=== PATIENT | female | born 1965 | race Two or more races ===

== ENCOUNTER 2024-07-22 15:18 | Inpatient (IN) | payer MEDICAID ==
[~2024-07-22] VITALS: Ht 160 cm; Wt 65.8 kg
[2024-07-22] MEDS ORDERED: ONDANSETRON HCL/PF 4 MG/2 ML VIAL ONE (16:16)
[2024-07-22] MEDS ORDERED: MORPHINE SULFATE INJ 4 MG/ML DISP.SYRIN ONE (16:16)
[2024-07-22] MEDS: ONDANSETRON HCL/PF 4 MG/2 ML VIAL IVP ONE (16:24)
[2024-07-22] MEDS: MORPHINE SULFATE INJ 2 MG/ML DISP.SYRIN IV ONE (16:25)
[2024-07-22] MEDS: IV NS 0.9% 500 ML BAG IV ONE (16:26)
[2024-07-22 17:05] LABS: BASOPHILS % (AUTO) 0.2 % (0.0-2.0); HEMATOCRIT 35 % (33-45); HEMOGLOBIN 11.7 g/dL (11.5-14.8); LYMPHOCYTES # (AUTO) 1.3 K/uL (0.8-4.8); LYMPHOCYTES % (AUTO) 8.3 % (20.0-44.0); MEAN CORPUSCULAR HEMOGLOBIN 28 PG (26.0-33.0); MEAN CORPUSCULAR HGB CONC 33 g/dl (31.0-36.0); MEAN CORPUSCULAR VOLUME 85 fL (82-100); MONOCYTES # (AUTO) 0.8 K/uL (0.1-1.30); MONOCYTES % (AUTO) 5.1 % (2.0-12.0); NEUTROPHILS # (AUTO) 13.2 K/uL (1.8-8.9); NEUTROPHILS % (AUTO) 86.4 % (43.0-81.0); PLATELET COUNT (AUTO) 256 K/uL (150-450); RED BLOOD CELL COUNT(AUTO) 4.18 MIL/uL (4.0-5.2); RED CELL DISTRIBUTION WIDTH 14.4 % (11.5-15.0); WHITE BLOOD COUNT (AUTO) 15.3 K/uL (4.3-11.0)
[2024-07-22] MEDS ORDERED: GLIM4TAB37 PO (17:23)
[2024-07-22] MEDS ORDERED: CALC-1239 PO (17:23)
[2024-07-22] MEDS ORDERED: METF1000 PO (17:23)
[2024-07-22] MEDS ORDERED: ASPI-1420 PO (17:23)
[2024-07-22] MEDS ORDERED: SERT50TA12 PO (17:23)
[2024-07-22] MEDS ORDERED: SITA100T PO (17:23)
[2024-07-22] MEDS ORDERED: DOCU100C58 PO (17:23)
[2024-07-22 17:27] LABS: CREATININE 0.7 mg/dL (0.6-1.3); POTASSIUM 4.3 mmol/L (3.5-5.1)
[2024-07-22] MEDS ORDERED: hydrALAZINE HCL IV 20 MG VIAL IV PRN (19:00)
[2024-07-22] MEDS ORDERED: ONDANSETRON HCL/PF 4 MG/2 ML VIAL IVP PRN (19:00)
[2024-07-22] MEDS ORDERED: DEXTROSE 50%-WATER 50 ML DISP.SYRIN IV PRN (19:00)
[2024-07-22 20:30] VITALS: BP 159/76; TEMP 99; O2SAT 99
[2024-07-22 21:49] LABS: INR 0.99 (0.91-1.10); PROTHROMBIN TIME 10.5 SECS (9.2-11.1)
[2024-07-22] MEDS: IV NS 0.9% 1,000 ML IV SCH (21:55)
[2024-07-22] MEDS: BLOOD SUGAR DIAGNOSTIC 1 EACH STRIP VI SCH (22:20)
[2024-07-22] MEDS: *INSULIN REGULAR(HUMULIN R)HUM 100 UNIT/ML VIAL SQ PRN (22:26)
[2024-07-22 23:05] VITALS: BP 144/71; O2SAT 98
[2024-07-22] MEDS: MORPHINE SULFATE INJ 2 MG/ML DISP.SYRIN IV PRN (23:05)
[2024-07-23] VITALS: BP 144/71; TEMP 98.9; O2SAT 98
[2024-07-23 02:28] LABS: PREGNANCY TEST URINE QUAL NEGATIVE (NEGATIVE)
[2024-07-23 04:00] VITALS: BP 144/79; TEMP 97.8; O2SAT 97
[2024-07-23] MEDS ORDERED: FERR325T6 PO (05:39)
[2024-07-23 07:10] LABS: BASOPHILS % (AUTO) 0.2 % (0.0-2.0); EOSINOPHILS % (AUTO) 0.1 % (0.0-6.0); HEMATOCRIT 31 % (33-45); HEMOGLOBIN 10.3 g/dL (11.5-14.8); LYMPHOCYTES # (AUTO) 1.2 K/uL (0.8-4.8); LYMPHOCYTES % (AUTO) 11.8 % (20.0-44.0); MEAN CORPUSCULAR HEMOGLOBIN 28 PG (26.0-33.0); MEAN CORPUSCULAR HGB CONC 34 g/dl (31.0-36.0); MEAN CORPUSCULAR VOLUME 83 fL (82-100); MONOCYTES # (AUTO) 0.9 K/uL (0.1-1.30); MONOCYTES % (AUTO) 9.5 % (2.0-12.0); NEUTROPHILS # (AUTO) 7.8 K/uL (1.8-8.9); NEUTROPHILS % (AUTO) 78.4 % (43.0-81.0); PLATELET COUNT (AUTO) 227 K/uL (150-450); RED BLOOD CELL COUNT(AUTO) 3.72 MIL/uL (4.0-5.2); RED CELL DISTRIBUTION WIDTH 14.4 % (11.5-15.0); WHITE BLOOD COUNT (AUTO) 9.9 K/uL (4.3-11.0)
[2024-07-23 07:13] LABS: INR 1.04 (0.91-1.10)
[2024-07-23 07:53] LABS: BILIRUBIN,TOTAL 0.3 mg/dL (0.2-1.0); CALCIUM, SERUM 7.9 mg/dL (8.5-10.1); CREATININE 0.5 mg/dL (0.6-1.3); MAGNESIUM 1.5 mg/dL (1.8-2.4); PHOSPHORUS 2.7 mg/dL (2.5-4.9); POTASSIUM 3.6 mmol/L (3.5-5.1)
[2024-07-23 08:00] VITALS: BP 149/67; TEMP 100; O2SAT 98
[2024-07-23] MEDS: SERTRALINE HCL 50 MG TABLET PO SCH (08:37)
[2024-07-23] MEDS: DOCUSATE SODIUM 100 MG CAPSULE PO SCH (08:37)
[2024-07-23] MEDS: MORPHINE SULFATE INJ 2 MG/ML DISP.SYRIN IV ONE (10:49)
[2024-07-23] MEDS ORDERED: BUPIVACAINE 0.25% 75 MG/30 ML VIAL ONE (11:06)
[2024-07-23] MEDS ORDERED: ANESTHESIA TRAY IN PYXIS 1 EA TRAY MC ONE (11:06)
[2024-07-23] MEDS: Magnesium 1GM/D5W 100ML PREMIX 100 ML IV SCH (11:13)
[2024-07-23] MEDS ORDERED: ROPIVACAINE HCL 0.5% 5 MG/ML 30ML VIAL ONE (12:00)
[2024-07-23] MEDS ORDERED: MIDAZOLAM HCL 2 MG/2ML VIAL ONE (12:00)
[2024-07-23] MEDS ORDERED: FENTANYL PF 100MCG/2ML AMPUL IV PRN (12:00)
[2024-07-23] MEDS ORDERED: TRANEXAMIC ACID 1,000 MG/10 ML VIAL ONE (13:19)
[2024-07-23] MEDS: INSULIN REGULAR, HUMAN 100 UNIT/ML 3 ML VIAL SQ PRN (17:11)
[2024-07-23] MEDS ORDERED: MORPHINE SULFATE INJ 4 MG/ML DISP.SYRIN IM PRN (18:00)
[2024-07-23] MEDS: CEFAZOLIN 2 GM in IV D5W 100 ML IV SCH (20:01)
[2024-07-23] MEDS ORDERED: HEPARIN SODIUM, PORCINE 5000 UNITS/1 ML VIAL SQ SCH (21:00)
[2024-07-24 01:27] VITALS: BP 114/50; TEMP 98.2; O2SAT 98
[2024-07-24 01:56] VITALS: BP 105/56; TEMP 99.1; O2SAT 99
[2024-07-24 04:49] VITALS: BP 124/54; TEMP 98.2; O2SAT 100
[2024-07-24 07:52] LABS: CALCIUM, SERUM 7.5 mg/dL (8.5-10.1); CREATININE 0.5 mg/dL (0.6-1.3); POTASSIUM 3.6 mmol/L (3.5-5.1)
[2024-07-24 08:00] VITALS: BP 112/55; TEMP 97.9; O2SAT 98
[2024-07-24] MEDS: ENOXAPARIN SODIUM 40 MG/0.4 ML DISP.SYRIN SQ SCH (08:29)
[2024-07-24] MEDS: MORPHINE SULFATE INJ 4 MG/ML DISP.SYRIN IV PRN (09:36)
[2024-07-24 16:00] VITALS: BP 112/55; TEMP 99.5; O2SAT 98
[2024-07-24 20:00] VITALS: BP 129/53; TEMP 99.1; O2SAT 98
[2024-07-25 07:00] LABS: BASOPHILS % (AUTO) 0.4 % (0.0-2.0); EOSINOPHILS % (AUTO) 0.1 % (0.0-6.0); HEMATOCRIT 24 % (33-45); HEMOGLOBIN 7.9 g/dL (11.5-14.8); LYMPHOCYTES # (AUTO) 1.1 K/uL (0.8-4.8); LYMPHOCYTES % (AUTO) 15.9 % (20.0-44.0); MEAN CORPUSCULAR HEMOGLOBIN 28 PG (26.0-33.0); MEAN CORPUSCULAR HGB CONC 34 g/dl (31.0-36.0); MEAN CORPUSCULAR VOLUME 84 fL (82-100); MONOCYTES # (AUTO) 0.8 K/uL (0.1-1.30); NEUTROPHILS # (AUTO) 5.2 K/uL (1.8-8.9); NEUTROPHILS % (AUTO) 72.6 % (43.0-81.0); PLATELET COUNT (AUTO) 194 K/uL (150-450); RED BLOOD CELL COUNT(AUTO) 2.81 MIL/uL (4.0-5.2); RED CELL DISTRIBUTION WIDTH 14.5 % (11.5-15.0); WHITE BLOOD COUNT (AUTO) 7.1 K/uL (4.3-11.0)
[2024-07-25 07:20] LABS: CREATININE 0.4 mg/dL (0.6-1.3); MAGNESIUM 1.9 mg/dL (1.8-2.4); PHOSPHORUS 2.6 mg/dL (2.5-4.9); POTASSIUM 3.7 mmol/L (3.5-5.1)
[2024-07-25 08:00] VITALS: BP 105/60; TEMP 98.2; O2SAT 98
[2024-07-25] MEDS: INSULIN GLARGINE, 100 UNIT/ML CARTRIDGE SQ SCH (09:36)
[2024-07-25 16:00] VITALS: BP 125/56; TEMP 99.1; O2SAT 100
[2024-07-25 20:00] VITALS: BP 118/54; O2SAT 97
[2024-07-26 04:00] VITALS: BP 122/65; TEMP 98.8; O2SAT 99
[2024-07-26] MEDS ORDERED: HYDR-3972 PO (07:19)
[2024-07-26] MEDS ORDERED: *INS REG SQ (07:19)
[2024-07-26] MEDS ORDERED: INSU100V28 SQ (07:19)
[2024-07-26] MEDS ORDERED: ENOX40DI SQ (07:19)
[2024-07-26] MEDS ORDERED: Insulin Glargine,Hum SQ (07:19)
[2024-07-26 08:00] VITALS: BP 113/58; TEMP 98.6; O2SAT 98
[2024-07-26 08:15] LABS: CALCIUM, SERUM 8.4 mg/dL (8.5-10.1); CREATININE 0.4 mg/dL (0.6-1.3); POTASSIUM 3.7 mmol/L (3.5-5.1)
[2024-07-26 08:37] LABS: BASOPHILS % (AUTO) 0.3 % (0.0-2.0); EOSINOPHILS % (AUTO) 0.7 % (0.0-6.0); HEMATOCRIT 24 % (33-45); HEMOGLOBIN 8.1 g/dL (11.5-14.8); LYMPHOCYTES # (AUTO) 1.3 K/uL (0.8-4.8); LYMPHOCYTES % (AUTO) 18.5 % (20.0-44.0); MEAN CORPUSCULAR HEMOGLOBIN 28 PG (26.0-33.0); MEAN CORPUSCULAR HGB CONC 34 g/dl (31.0-36.0); MEAN CORPUSCULAR VOLUME 84 fL (82-100); MONOCYTES # (AUTO) 0.7 K/uL (0.1-1.30); MONOCYTES % (AUTO) 10.7 % (2.0-12.0); NEUTROPHILS # (AUTO) 4.8 K/uL (1.8-8.9); NEUTROPHILS % (AUTO) 69.8 % (43.0-81.0); PLATELET COUNT (AUTO) 218 K/uL (150-450); RED BLOOD CELL COUNT(AUTO) 2.86 MIL/uL (4.0-5.2); RED CELL DISTRIBUTION WIDTH 14.7 % (11.5-15.0); WHITE BLOOD COUNT (AUTO) 6.9 K/uL (4.3-11.0)
[2024-07-26 15:11] VITALS: BP 119/57; TEMP 99.1; O2SAT 99
[2024-07-26 20:00] VITALS: BP 119/56; TEMP 98.8; O2SAT 100
[2024-07-27 07:22] LABS: CALCIUM, SERUM 8.5 mg/dL (8.5-10.1); CREATININE 0.4 mg/dL (0.6-1.3); POTASSIUM 3.8 mmol/L (3.5-5.1)
[2024-07-27 08:00] VITALS: BP 112/62; TEMP 98.1; O2SAT 99
[2024-07-27] MEDS: SENNOSIDES/DOCUSATE SODIUM 1 TAB TABLET PO SCH (15:05)
[2024-07-27 20:00] VITALS: BP 127/61; TEMP 98.1; TEMP 98.9; O2SAT 100
[2024-07-28 06:51] LABS: CALCIUM, SERUM 8.5 mg/dL (8.5-10.1); CREATININE 0.4 mg/dL (0.6-1.3); MAGNESIUM 1.7 mg/dL (1.8-2.4); PHOSPHORUS 3.8 mg/dL (2.5-4.9); POTASSIUM 3.7 mmol/L (3.5-5.1)
[2024-07-28 07:00] VITALS: BP 118/53; TEMP 99.2; O2SAT 98
[2024-07-28 07:01] LABS: BASOPHILS % (AUTO) 0.2 % (0.0-2.0); EOSINOPHILS # (AUTO) 0.1 K/uL (0.0-0.7); EOSINOPHILS % (AUTO) 0.9 % (0.0-6.0); HEMATOCRIT 24 % (33-45); HEMOGLOBIN 8.1 g/dL (11.5-14.8); LYMPHOCYTES # (AUTO) 1.2 K/uL (0.8-4.8); LYMPHOCYTES % (AUTO) 17.4 % (20.0-44.0); MEAN CORPUSCULAR HEMOGLOBIN 28 PG (26.0-33.0); MEAN CORPUSCULAR HGB CONC 34 g/dl (31.0-36.0); MEAN CORPUSCULAR VOLUME 83 fL (82-100); MONOCYTES # (AUTO) 0.7 K/uL (0.1-1.30); MONOCYTES % (AUTO) 10.3 % (2.0-12.0); NEUTROPHILS # (AUTO) 4.8 K/uL (1.8-8.9); NEUTROPHILS % (AUTO) 71.2 % (43.0-81.0); PLATELET COUNT (AUTO) 248 K/uL (150-450); RED BLOOD CELL COUNT(AUTO) 2.87 MIL/uL (4.0-5.2); RED CELL DISTRIBUTION WIDTH 14.4 % (11.5-15.0); WHITE BLOOD COUNT (AUTO) 6.7 K/uL (4.3-11.0)
[2024-07-28] MEDS: MAGNESIUM OXIDE 400 MG TABLET PO ONE (11:07)
[2024-07-28] MEDS: LACTULOSE 10 G/15 ML UDC (PYXIS) PO ONE (11:52)
[2024-07-28] MEDS: SORBITOL SOLUTION 70% 30 ML SOLUTION PO ONE (11:53)
[2024-07-28 16:00] VITALS: BP 132/73; TEMP 98.4; O2SAT 99
[2024-07-28 20:00] VITALS: BP 114/58; TEMP 98.8; O2SAT 98
[2024-07-29] MEDS: IV NS 0.9% 1,000 ML IV PRN (06:13)
[2024-07-29] MEDS: ACETAMINOPHEN 325 MG TABLET PO PRN (06:23)
[2024-07-29 06:48] LABS: CALCIUM, SERUM 8.7 mg/dL (8.5-10.1); CREATININE 0.4 mg/dL (0.6-1.3); POTASSIUM 3.7 mmol/L (3.5-5.1)
[2024-07-29 08:00] VITALS: BP 109/59; TEMP 98.4; O2SAT 97
[2024-07-29 20:38] VITALS: BP 115/56; TEMP 99.1; O2SAT 98
[2024-07-30 08:00] VITALS: BP 109/53; TEMP 98.8; O2SAT 98
[2024-07-30 16:00] VITALS: BP 125/59; TEMP 99.5; O2SAT 100
[2024-07-30 20:00] VITALS: BP 119/52; TEMP 97.7; O2SAT 99
[2024-07-30 21:00] VITALS: BP 121/64; TEMP 98.2; O2SAT 99
[2024-07-31 04:00] VITALS: BP 112/62; TEMP 98.2; O2SAT 99
[2024-07-31 04:37] VITALS: BP 119/69; TEMP 98; O2SAT 99
[2024-07-31 08:00] VITALS: BP 140/66; TEMP 98.5; O2SAT 99
[2024-07-31] MEDS: ENOXAPARIN SODIUM 40 MG/0.4 ML DISP.SYRIN SQ SCH (15:41)
[2024-07-31 16:00] VITALS: BP 161/68; TEMP 98.4; O2SAT 97
[2024-07-31 20:00] VITALS: BP 130/57; TEMP 98.8; O2SAT 99
[2024-08-01 08:00] VITALS: BP 119/59; TEMP 98.1; O2SAT 99
[2024-08-01 20:00] VITALS: BP 102/53; TEMP 98.8; O2SAT 98
[2024-08-02 07:30] VITALS: BP 118/56; TEMP 98.1; O2SAT 99
== END 2024-08-02 18:30 | DRG 308 ==
LOC: ER 15:36 → EDBD 15:36 → TRANSITION 18:44 → MED 19:28 → TELE 07-23 00:16 → MED 07-24 10:36
PROVIDERS: ADMIT Internal Medicine; ATTEND Nurse Practitioner Acute Care
PROC: 0QS606Z Reposition Right Upper Femur with Intramedullary Internal Fixation Device, Open Approach (ICD-10-PCS; principal; 2024-07-23)
DX: S72.141A Displaced intertrochanteric fracture of right femur, initial encounter for closed fracture (principal); I69.351 Hemiplegia and hemiparesis following cerebral infarction affecting right dominant side; D72.829 Elevated white blood cell count, unspecified; E11.9 Type 2 diabetes mellitus without complications; F32.A Depression, unspecified; F43.9 Reaction to severe stress, unspecified; S42.251A Displaced fracture of greater tuberosity of right humerus, initial encounter for closed fracture; I10 Essential (primary) hypertension; S42.211A Unspecified displaced fracture of surgical neck of right humerus, initial encounter for closed fracture; W18.2XXA Fall in (into) shower or empty bathtub, initial encounter; Y92.002 Bathroom of unspecified non-institutional (private) residence as the place of occurrence of the external cause; Z66 Do not resuscitate; M60.9 Myositis, unspecified; Z79.4 Long term (current) use of insulin; Z79.84 Long term (current) use of oral hypoglycemic drugs; Y93.E1 Activity, personal bathing and showering; Z79.82 Long term (current) use of aspirin
CPT/HCPCS: 36415; 71045-TC; 72170-TC; 72192-TC; 73030-TC; 73200-TC; 73501; 73502; 73552; 73560-TC; 80048-TC; 80053-TC; 82962-TC; 83735-TC; 84100-TC; 84703-TC; 85025-TC; 85610-TC; 85730-TC; 86850-TC; 97110-TC; 97112-TC; 97116-TC; 97530-TC; 97535-TC; A4223; A6209; A6253; C1713; G0378; J0690; J1100; J1650; J1815; J2250; J2270; J2405; J2704; J2795; J3010; J3475; J3490; J7030; J7040; J7050; J7060